=== PATIENT | female | born 1980 | race Caucasian/White ===

== ENCOUNTER 2017-01-07 11:18 | Emergency (ER) | payer OTHER | END 2017-01-07 13:15 | disposition home or self-care (01) | LOC: ER 11:18 | DX: S20.212A Contusion of left front wall of thorax, initial encounter (principal); M25.551 Pain in right hip; M54.9 Dorsalgia, unspecified; E66.9 Obesity, unspecified; F41.9 Anxiety disorder, unspecified; K21.9 Gastro-esophageal reflux disease without esophagitis; F32.9 Major depressive disorder, single episode, unspecified; F17.210 Nicotine dependence, cigarettes, uncomplicated; Z90.710 Acquired absence of both cervix and uterus; Z79.899 Other long term (current) drug therapy; Z91.030 Bee allergy status; V59.40XA Driver of pick-up truck or van injured in collision with unspecified motor vehicles in traffic accident, initial encounter | CPT/HCPCS: 72072; 73502-RT ==